=== PATIENT | female | born 1985 | race Caucasian/White ===

== ENCOUNTER 2024-04-03 05:24 | Day surgery (SDC) | payer OTHER ==
[~2024-04-03 05:24] MED LIST: COZAAR50 MG PO; VERAPAMIL ER120 MG PO; ZYRTEC10 M3 PO
[2024-04-03] MEDS ORDERED: EPINEPHRINE HCL/PF 1 MG/ML AMPUL ONE (07:32)
[2024-04-03] MEDS ORDERED: LIDOCAINE HCL 1%/EPINEPHRINE 20ML VIAL IJ ONE ×2 (07:34→07:37)
[2024-04-03] MEDS ORDERED: ENOXAPARIN SODIUM 40 MG/0.4 ML SYRINGE SUBCUTANEO ONE (07:36)
[2024-04-03] MEDS ORDERED: CEFAZOLIN SODIUM 1,000 MG VIAL ONE (07:37)
[2024-04-03] MEDS ORDERED: LIDOCAINE HCL 1%/EPINEPHRINE 20ML VIAL IJ SCH (11:30)
[2024-04-03] MEDS ORDERED: CEFAZOLIN SODIUM 1,000 MG VIAL IV SCH (11:30)
[2024-04-03] MEDS ORDERED: ENOXAPARIN SODIUM 40 MG/0.4 ML SYRINGE SUBCUTANEO SCH (11:30)
[2024-04-03] MEDS ORDERED: EPINEPHRINE HCL/PF 1 MG/ML AMPUL IR SCH (11:30)
[2024-04-03] MEDS ORDERED: NEOMYCIN/BACITRACIN/POLYMYXINB 14 G TUBE TOP ONE (11:45)
[2024-04-03] MEDS ORDERED: CLINDAMYCIN PHOSPHATE 150 MG/ML (900mg) ONE (13:58)
[2024-04-03] MEDS ORDERED: VANCOMYCIN HCL 1,000 MG VIAL ONE (13:59)
[2024-04-03] MEDS ORDERED: GENTAMICIN SULFATE 40 MG/ML VIAL ONE (13:59)
== END 2024-04-03 17:05 | disposition home or self-care (01) ==
LOC: CIR.AMB 05:24
PROVIDERS: ATTEND Specialist
DX: E88.1 Lipodystrophy, not elsewhere classified (principal); I10 Essential (primary) hypertension; J45.909 Unspecified asthma, uncomplicated